=== PATIENT | male | born 1985 | race Hispanic/Latino ===

== ENCOUNTER 2018-09-01 15:44 | Emergency (ER) | payer OTHER ==
--- NOTE | 2018-09-01 16:39 | ED PDOC ---
HPI: Psych/Substance Abuse Time Seen by Provider: 09/01/18 16:06 Chief Complaint (Nursing): Alcohol Ingestion Chief Complaint (Provider): Alcohol Ingestion History Per: Patient History/Exam Limitations: no limitations Onset/Duration Of Symptoms: Hrs Modifying Factor(s): Alcohol Associated Symptoms: Depression Additional Complaint(s): 32 year old male was brought to the ED by EMS for intoxication. Patient was found sleeping on the bench. Patient reports he drinks daily to help with his depression. Also visits his therapist but he does not take any medication. Patient reports he drank a lot and he drank vodka. Otherwise, he denies homicidal ideation, homicidal ideation, auditory/visual hallucinations. Denies any physical complaints PMD: unknown Past Medical History Reviewed: Historical Data, Nursing Documentation, Vital Signs Vital Signs: Last Vital Signs Temp 98.8 F 09/01/18 15:46 Pulse 74 09/01/18 15:46 Resp 19 09/01/18 15:46 BP 134/83 09/01/18 15:46 Pulse Ox 97 09/01/18 15:46 Primary Care Provider: FAMILY PROVIDER,NO - Medical History PMH: Depression - Family History Family History: States: Unknown Family Hx - Social History Alcohol: Other (vodka daily) - Allergies Allergies/Adverse Reactions: Allergies Allergy/AdvReac Type Severity Reaction Status Date / Time No Known Allergies Allergy Verified 09/01/18 15:49 Review of Systems ROS Statement: Except As Marked, All Systems Reviewed And Found Negative Constitutional: Negative for: Fever, Chills Cardiovascular: Negative for: Chest Pain Gastrointestinal: Negative for: Abdominal Pain Psych: Negative for: Suicidal ideation, Other ( homicidal ideation, auditory/visual hallucinations ) Physical Exam - Reviewed Nursing Documentation Reviewed: Yes Vital Signs Reviewed: Yes - Physical Exam Comments: GENERAL APPEARANCE: Patient is sleepy but responsive to verbal stimuli, answering all questions appropriately, alert, oriented x 3, in no acute distress. SKIN: Warm, dry; (-) cyanosis HEAD: (-) scalp swelling, (-) scalp tenderness. EYES: (-) conjunctival pallor, (-) scleral icterus, (-) nystagmus. (+) PERRLA, EOMI ENMT: Mucous membranes moist. Airway patent: (-) stridor. NECK: (-) tenderness, (-) stiffness, (-) lymphadenopathy. HEART AND CARDIOVASCULAR: (-) irregularity; (-) murmur, (-) gallop. CHEST AND RESPIRATORY: (-) rales, (-) rhonchi, (-) wheezes; breath sounds equal. ABDOMEN: Soft, (-) distention, (-) tenderness, (-) guarding. NEURO AND PSYCH: Mental status as above. Affect: flat claim processing specialist: Intact. Pupils equal and reactive; EOMI; (-) facial asymmetry; tongue and uvula midline. Strength and DTRs symmetric. Not able to ambulate this time. Drowsy and intoxicated - ECG O2 Sat by Pulse Oximetry: 97 (RA) Pulse Ox Interpretation: Normal Medical Decision Making Medical Decision Making: Time: 161 Impression: alcohol intoxication Plan: Alcohol serum Glucose, POC, Blood Sobriety Re-evaluation 18:10 on re eval pt is resting comfortably, arousable and responsive to verbal stimuli and questions, pt ambulated with unsteady gait RN spoke to pt's who is at home with a baby, will find someone to watch baby then come here 19:40 pt's just got here, she reports that pt has been depressed for 5 years since father , he will occassionally go on a drinking binge for a day, but he has been drinking for the last 3 days which is the worse he has been. reports that pt has been lying to her, his boss and therapist. dropped him off at train this morning to go to work, spoke to him at 12:30 and he said he would be home at 3:30, but just spoke to pt's boss who says he called out today, thinks he would benefit from crisis eval pt continues to deny SI/HI, visual/auditory hallucinations on re eval pt is now awake, reports he feels nauseous and dehydrated, he does not feel stable enough to get up and walk, pt's mouth is dry, will get IV, labs and IVF 20:00 case endorsed to Lencho CHEEK, pending sobriety, labs, crisis, dispo Scribe Attestation: Documented by Laurel Simmons acting as a scribe for Bob España PA-C Provider Scribe Attestation: All medical record entries made by the Scribe were at my direction and per sonally dictated by me. I have reviewed the chart and agree that the record accurately reflects my personal the department course for this patient. I have also personally directed, performance of the history, physical exam, medical decision making, and reviewed, and agree with the discharge instructions and disposition Disposition - Clinical Impression Clinical Impression: Alcohol abuse with intoxication, Depression - Patient ED Disposition Is Patient to be Admitted: Transfer of Care (case endorsed to [facility], pending sobriety, labs, crisis, dispo) - Disposition Disposition: Transfer of Care (case endorsed to [facility], pending sobriety, labs, crisis, dispo) Disposition Time: 20:00 Condition: STABLE Instructions: Alcohol Use - When Is Drinking a Problem? - POA Present On Arrival: None
[2018-09-01] MEDS ORDERED: Sodium Chloride 0.9% 1,000 ML IV SCH (19:45)
[2018-09-01 20:08] LABS: BASO # 0.1 K/uL (0.0-0.2); BASO % 0.8 % (0.0-2.0); EOS # 0.1 K/uL (0.0-0.7); EOS % 0.5 % (0.0-4.0); HEMOGLOBIN 15.4 g/dL (12.0-18.0); LYMPH # 2.8 K/uL (1.0-4.3); LYMPH % 26.2 % (20.0-40.0); MEAN CELL VOLUME 88.6 fl (80.0-94.0); MEAN CORPUSCULAR HEMOGLOBIN 29.5 pg (27.0-31.0); MEAN CORPUSCULAR HGB CONC 33.3 g/dL (33.0-37.0); MEAN PLATELET VOLUME 8.4 fl (7.2-11.7); MONO # 0.5 K/uL (0.0-0.8); MONO % 4.2 % (0.0-10.0); NEUT # 7.4 K/uL (1.8-7.0); NEUT % 68.3 % (50.0-75.0); RBC 5.23 Mil/uL (4.40-5.90); RED CELL DISTRIBUTION WIDTH 13.6 % (11.5-14.5); WHITE BLOOD COUNT 10.8 K/uL (4.8-10.8)
[2018-09-01 20:34] LABS: ALB/GLOB RATIO 1.8 (1.0-2.1); ALBUMIN 5.2 g/dL (3.5-5.0); ALT/SGPT 25 U/L (21-72); AST/SGOT 30 U/L (17-59); BLOOD UREA NITROGEN 12 mg/dl (9-20); CALCIUM 8.9 mg/dL (8.4-10.2); GFR NON-AFRICAN AMERICAN > 60
[2018-09-01 22:39] LABS: SQUAMOUS EPITHIAL < 1 /hpf (0-5); URINE BILIRUBIN NEGATIVE (NEGATIVE); URINE BLOOD SMALL (NEGATIVE); URINE CLARITY CLEAR (Clear); URINE COLOR YELLOW (YELLOW); URINE GLUCOSE (UA) NEG (NEGATIVE); URINE LEUKOCYTE ESTERASE NEG Leu/uL (Negative); URINE PROTEIN NEGATIVE (NEGATIVE); URINE UROBILINOGEN 0.2-1.0 mg/dL (0.2-1.0)
[2018-09-01 22:56] LABS: BARBITURATES, UR NEGATIVE (NEGATIVE); BENZODIAZEPINES, UR NEGATIVE (NEGATIVE); OPIATES, UR NEGATIVE (NEGATIVE); PHENCYCLIDINE, UR NEGATIVE (NEGATIVE)
--- NOTE | 2018-09-02 01:28 | ED PDOC ---
- Laboratory Results Result Diagrams: 09/01/18 20:04 09/01/18 20:04 Lab Results: Total Bilirubin 0.5 mg/dl (0.2-1.3) 09/01/18 20:04 AST 30 U/L (17-59) 09/01/18 20:04 ALT 25 U/L (21-72) 09/01/18 20:04 Alkaline Phosphatase 63 U/L (38-126) 09/01/18 20:04 Total Protein 8.0 G/DL (6.3-8.2) 09/01/18 20:04 Albumin 5.2 g/dL (3.5-5.0) H 09/01/18 20:04 Globulin 2.9 gm/dL (2.2-3.9) 09/01/18 20:04 Albumin/Globulin Ratio 1.8 (1.0-2.1) 09/01/18 20:04 Urine Color Yellow (YELLOW) 09/01/18 22:27 Urine Clarity Clear (Clear) 09/01/18 22: Urine pH 6.0 (5.0-8.0) 09/01/18 22:27 Ur Specific [place] 1.011 (1.003-1.030) 09/01/18 22:27 Urine Protein Negative mg/dL (NEGATIVE) 09/01/18 22: Urine Glucose (UA) Neg mg/dL (NEGATIVE) 09/01/18 22: Urine Ketones Trace mg/dL (NEGATIVE) 09/01/18 22:27 Urine Blood Small (NEGATIVE) 09/01/18 22:27 Urine Nitrate Negative (NEGATIVE) 09/01/18 22: Urine Bilirubin Negative (NEGATIVE) 09/01/18 22:27 Urine Urobilinogen 0.2-1.0 mg/dL (0.2-1.0) 09/01/18 22:27 Ur Leukocyte Esterase Neg [place]/uL (Negative) 09/01/18 22:27 Urine RBC (Auto) 1 /hpf (0-3) 09/01/18 22:27 Urine Microscopic WBC 2 /hpf (0-5) 09/01/18 22:27 Ur Squamous Epith Cells < 1 /hpf (0-5) 09/01/18 22:27 - ECG O2 Sat by Pulse Oximetry: 97 (RA) - Progress ED Course And Treament: Case endorsed to senior writer from Cleopatra España PA-C pending sobriety and crisis eval 21:30 Patient awake, resting comfortably 23:00 Patient awake, resting comfortably 1:00 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 Bañuelos Information given for detox program Patient awake, alert, oriented x3. Ambulating steady gait. 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
[2018-09-02 01:29] VITALS: BP 146/76; PULSE 65; RESP 18; TEMP 98
[2018-09-02 01:31] VITALS: O2SAT 96
== END 2018-09-02 01:26 | disposition home or self-care (01) ==
LOC: H.ER 15:44
DX: F10.129 Alcohol abuse with intoxication, unspecified (principal); F10.14 Alcohol abuse with alcohol-induced mood disorder; F32.9 Major depressive disorder, single episode, unspecified; Y90.8 Blood alcohol level of 240 mg/100 ml or more
CPT/HCPCS: 80053; 80320; 80324; 80345; 80346; 80349; 80353; 80358; 80361; 81003; 82948; 83992; 85025; 96374; 99284; J2405; J7030